=== PATIENT | female | born 1940 | race Caucasian/White ===

== ENCOUNTER 2021-08-29 17:18 | Emergency (ER) | payer MEDICARE | END 2021-08-29 18:47 | disposition home or self-care (01) | LOC: ERS 17:18 | DX: Z45.2 Encounter for adjustment and management of vascular access device (principal) | CPT/HCPCS: 99283 ==

== ENCOUNTER 2021-09-02 17:51 | Emergency (ER) | payer MEDICARE | END 2021-09-02 21:21 | disposition home or self-care (01) | LOC: ERS 17:51 | DX: T82.594A Other mechanical complication of infusion catheter, initial encounter (principal) | CPT/HCPCS: 99283 ==